=== PATIENT | male | born 1950 | race Caucasian/White ===

== ENCOUNTER 2017-01-05 11:08 | Inpatient (IN) ==
--- NOTE | 2017-01-04 15:24 | Discharge Summary ---
<Jeny Curiel E - Last Filed: 01/05/17 09:11> Date of Encounter: 01/05/17 - Discharge Diagnosis (1) Arthritis of left knee Priority: Primary Status: Acute (2) CAD (coronary artery disease) Priority: Secondary Status: Acute Qualifiers: Coronary Disease-Associated Artery/Lesion type: unspecified vessel or lesion type [place] vs. transplanted heart: unspecified whether [place] or transplanted heart Associated angina: angina presence unspecified Qualified Code(s): I25.10 - Atherosclerotic heart disease of [place] coronary artery without angina pectoris (3) Hypertension Priority: Secondary Status: Acute Qualifiers: Hypertension type: essential hypertension Qualified Code(s): I10 - Essential (primary) hypertension (4) HLD (hyperlipidemia) Priority: Secondary Status: Acute Qualifiers: Hyperlipidemia type: unspecified Qualified Code(s): E78.5 - Hyperlipidemia , unspecified (5) GERD (gastroesophageal reflux disease) Priority: Secondary Status: Acute Qualifiers: Esophagitis presence: esophagitis presence not specified Qualified Code(s) : K21.9 - Gastro-esophageal reflux disease without esophagitis (6) History of DVT (deep vein thrombosis) Priority: Secondary (Start Lovenox post-op and continue for 10 days for prophylaxis. Patient to resume Plavix following surgery.) Status: Acute - Discharge Medications Home Medications: Atenolol [Tenormin] 25 mg PO DAILY 05/20/16 [History] Atorvastatin [Lipitor] 40 mg PO HS 05/20/16 [History] Clopidogrel [Plavix] 75 mg PO DAILY 05/20/16 [History] Diclofenac Sodium [Voltaren] 1 appl TP QID 05/20/16 [History] Lisinopril [Zestril] 20 mg PO DAILY 05/20/16 [History] Montelukast [Singulair] 10 mg PO HS 05/20/16 [History] Ranitidine HCl [Zantac] 150 mg PO BID 05/20/16 [History] Enoxaparin [Lovenox] 30 mg SQ Q12HR #20 syr 01/04/17 [Rx] OxyCODONE Immed Rel [Roxicodone 5 MG] 5 - 10 mg PO Q6HR PRN #40 tablet 01/04/17 [Rx] Aspirin Enteric Coated [Aspirin EC] 325 mg PO BID #30 tablet. 01/05/17 [Rx] Aspirin [Lo-Dose Aspirin EC] 81 mg PO DAILY 01/05/17 [History] Allergies/Adverse Reactions: Allergies No Known Allergies Allergy (Verified 01/05/17 11:54) Primary care physician: Rudi Duffy MD - Patient Status Disposition: Home, Self-Care Condition: Good - Discharge Instructions Follow Up With: Rudi Duffy MD [Primary Care Provider] - - Hospital Course Hospital course: Mr. Cotto is a 66 year old male - Time Spent with Patient Total time spent providing and/or coordinating discharge services: <Sigifredo Monteiro - Last Filed: 01/08/17 06:44> Date of Encounter: 01/08/17 Time of Encounter: 06:43 - Discharge Diagnosis (1) Arthritis of left knee Priority: Primary Status: Acute (2) CAD (coronary artery disease) Priority: Secondary Status: Chronic Qualifiers: Coronary Disease-Associated Artery/Lesion type: unspecified vessel or lesion type [place] vs. transplanted heart: unspecified whether [place] or transplanted heart Associated angina: angina presence unspecified Qualified Code(s): I25.10 - Atherosclerotic heart disease of [place] coronary artery without angina pectoris (3) Hypertension Priority: Secondary Status: Chronic Qualifiers: Hypertension type: essential hypertension Qualified Code(s): I10 - Essential (primary) hypertension (4) HLD (hyperlipidemia) Priority: Secondary Status: Chronic Qualifiers: Hyperlipidemia type: unspecified Qualified Code(s): E78.5 - Hyperlipidemia , unspecified (5) GERD (gastroesophageal reflux disease) Priority: Secondary Status: Chronic Qualifiers: Esophagitis presence: esophagitis presence not specified Qualified Code(s) : K21.9 - Gastro-esophageal reflux disease without esophagitis (6) History of DVT (deep vein thrombosis) Priority: Secondary Status: Chronic Primary care physician: Rudi Duffy MD - Patient Status Functional capacity at discharge: uses cane/walker Overall status at discharge: patient is progressing back to baseline - Hospital Course Hospital course: Mr. Cotto is a 66 year old male The patient had an uneventful postoperative course. They received antibiotics and physical therapy and were discharged in stable condition. There will follow -up in the office in 2 weeks. Aspirin DVT prophylaxis - Time Spent with Patient Total time spent providing and/or coordinating discharge services:
[2017-01-05] MEDS ORDERED: CeFAZolin Pre 2,000 MG/100 ML 2,000 MG/100 ML BAG IVPB ONE (11:41)
[2017-01-05] MEDS ORDERED: Ringers Solution, Lactated 1,000 ML IVC SCH ×3 (11:45→16:12)
--- NOTE | 2017-01-05 11:46 | Anesthesia Evaluation PreOp ---
Date of Encounter: 01/05/17 Time of Encounter: 11:44 - Past History Planned Operation: Left Total Knee Arthroplasty Cardiac History: HTN, Hyperlipidemia, Cardiac Stent (stent x 1) Pulmonary History: Former smoker (quit 32 years ago, smoked for 12 years), Snore [employer] History: Denies Any Significant HX Other Medical History: GERD Anesthesia History: No Prior Anesthetic Complications, Past Anesthesia Alcohol Use: rarely Drug use: none Medications and Allergies Atenolol [Tenormin] 25 mg PO DAILY 05/20/16 [History] Atorvastatin [Lipitor] 40 mg PO HS 05/20/16 [History] Clopidogrel [Plavix] 75 mg PO DAILY 05/20/16 [History] Diclofenac Sodium [Voltaren] 1 appl TP QID 05/20/16 [History] Lisinopril [Zestril] 20 mg PO DAILY 05/20/16 [History] Montelukast [Singulair] 10 mg PO 05/20/16 [History] Ranitidine HCl [Zantac] 150 mg PO 05/20/16 [History] Enoxaparin [Lovenox] 30 mg SQ Q12HR #20 syr 01/04/17 [Rx] OxyCODONE Immed Rel [Roxicodone 5 MG] 5 - 10 mg PO Q6HR PRN #40 tablet 01/04/17 [Rx] Aspirin Enteric Coated [Aspirin EC] 325 mg PO BID #30 tablet. 01/05/17 [Rx] Aspirin [Lo-Dose Aspirin EC] 81 mg PO DAILY 01/05/17 [History] Allergies No Known Allergies Allergy (Verified 01/05/17 11:54) - Meds/Allergy Pre-op Review Medications Reviewed: Yes Allergies Reviewed: Yes Beta Blockers on Current Med List: Yes If Beta Blockers taken, Date/Time (Last Dose taken): 01/05/2017 at 1217 Anesthesia Results - Labs Laboratory Tests 12/22/16 12/22/16 12/22/16 13:34 13:34 13:34 WBC 7.0 Hgb 14.9 Hct 44.2 Plt Count 193 PT 11.5 INR 1.1 APTT 32.8 Sodium 141 Potassium 4.8 H BUN 20 Creatinine 0.98 - Imaging EKG: report reviewed (02/29/2016 SR, NSST abnormality) Anesthesia Exam O2 Sat Height 1.85 m Height 1.85 m Weight 89.811 kg Weight 89.811 kg O2 Sat by Pulse Oximetry 96 Vital Signs Temp Pulse Resp BP Pulse Ox 97.9 F 108 18 133/85 96 01/05/17 11:28 01/05/17 11:28 01/05/17 11:28 01/05/17 11:28 01/05/17 11:28 Height: 6'1'' Weight: 198 lbs NPO (# of Hours): 8 Pain Scale: 0 Pain Scale Used: Numeric (1 - 10) - HEENT Pupil (Motor): EOMI Mallampati: III Teeth: Normal Oral Opening: Greater than 3 - [employer] LOC: Oriented [employer] Motor: Normal RUE, Normal LUE, Normal RLE, Normal LLE, Normal Face [employer] Sensory: Normal: RUE, LUE, RLE, LLE, Face - Cardiac Rhythm: Regular Murmur: None - Pulmonary Breath Sounds: bilateral Clear Respiratory Effort: Symmetrical Anesthesia Assess/Plan ASA Score: 3 Modified [place] Scale for Level of Consciousness: Cooperative, oriented, and tranquil Anesthetic Plan: General, Regional Monitoring Plan: Standard Monitors Recovery Plan: PACU
--- NOTE | 2017-01-05 12:03 | History & Physical Report ---
Date of Encounter: 01/05/17 Time of Encounter: 12:02 24 Hour HP Update - Instructions Instructions: If the History and Physical is less than 30 days old and was completed prior to A.M. admission and or procedure and has NOT been updated on calendar day of procedure please complete this update prior to performing procedure. - Update Patient reports changes in Medical Condition: No Changes in examination, assessment, or condition: No Changes in Medication: No Preop tests/diagnostics Reviewed: Yes Surgery Remains Indicated: Yes Consent for Planned Operative Procedure(s) Verified: Yes - Pre-Operative Checklist Preoperative Checklist Indicated: No Prophylactic Antibiotic Ordered: Yes Is VTE Prophylaxis Indicated?: Yes
[2017-01-05] MEDS ORDERED: Dexamethasone 4 MG/ML VIAL ONE (12:37)
[2017-01-05] MEDS ORDERED: *HR* FentaNYL (PF) 100 MCG/2 ML VIAL ONE (12:37)
[2017-01-05] MEDS ORDERED: Lidocaine -MPF 2% 2 ML VIAL ONE (12:37)
[2017-01-05] MEDS ORDERED: Ondansetron 4 MG/2 ML VIAL ONE (12:37)
[2017-01-05] MEDS ORDERED: *HR* Midazolam HCl 2 MG/2 ML VIAL ONE (12:38)
[2017-01-05] MEDS ORDERED: *HR* Propofol 200 MG/20 ML VIAL IVP ONE (12:38)
[2017-01-05] MEDS ORDERED: ROPIVACAINE HCL/PF 0.5% 30 ML VIAL ONE (12:56)
[2017-01-05] MEDS ORDERED: Tetracaine/PF 20 MG/2 ML AMPUL ONE (13:25)
[2017-01-05] MEDS ORDERED: Ketorolac 30 MG/ML VIAL ONE (14:32)
[2017-01-05] MEDS ORDERED: Ondansetron 4 MG/2 ML VIAL IVP ONE (14:50)
[2017-01-05] MEDS ORDERED: *HR* Labetalol 100 MG/20 ML MDV IVP PRN (14:50)
[2017-01-05] MEDS ORDERED: Dexamethasone 4 MG/ML VIAL IVP ONE (14:50)
[2017-01-05] MEDS ORDERED: *HR* HYDROmorphone 2 MG/ML SYRINGE ONE (14:55)
--- NOTE | 2017-01-05 14:58 | Orthopedic Operative Note ---
Date of procedure: 01/05/17 Pre-op diagnosis: Left knee arthritis Post-op diagnosis: same Procedure: Procedure: Left Total knee replacement Estimated blood loss: 200 cc Hardware: Arthrex Femur: 7 Tibia: 7 PS insert: 8 Patella: 40 Exam Under anesthesia: Varus alignment loss. Full extension 5 degrees Procedural Notes: Grade 3 arthritic changes patellofemoral joint grade 4 changes medial compartment. Operative procedure: The patient was brought to the operating room and placed on the operating room table. After general anesthesia was administered the operative knee was examined. Findings were noted in the exam under anesthesia. The operative extremity was prepped and draped in sterile surgical fashion. The patient received IV antibiotics prior to skin incision. A standard midline incision was made centered over the patella. The incision was made through the skin and subcutaneous tissue. A medial parapatellar tendon approach was performed. Care was taken to preserve tissue along the medial aspect of the patella. And to protect the patella tendon. The deep MCL was released off the medial tibia. The infra patella fat pad was excised. Knee was brought into flexion. Patient noted that grade 3 arthritic changes patellofemoral joint grade 4 changes medial compartment. The entry hole was made for the intramedullary femoral guide. The guide was seated in 6 degrees of valgus. Anterior cut was made followed by the distal cut. The ACL the PCL the medial and the lateral menisci were excised. The tibia was subluxed forward. The entry hole was made for the intramedullary tibial guide. Guide was seated to resect 2 mm off the more abnormal side. The knee was brought into flexion the distal femur was sized a 7. The femoral guide was seated, the anterior cut was made followed by the posterior condylar cut, followed by the chamfer cuts. The finishing guide was seated the box cut was made and the lug holes were drilled. The tibia was sized 7, the tibial tray was seated and prepared with the large drill followed by the fin cutter. Trial reduction revealed full extension no varus valgus instability with the appropriate 8 PS Dedra. The patella was everted and cut was made at the level of the insertion of the quadriceps and patella tendon. The patella was sized 40 the guide was seated and the lug holes are drilled. Trial reduction revealed excellent patella tracking. All trial components were removed all bony surfaces were irrigated. The tibia was cemented first followed by the femur. The 8 PS Dedra was seated and secured patient had full extension and full flexion and no varus valgus instability. The patella was cemented and held in place with the patellar holding clamp. After the cement had hardened, the knee sat for 2 minutes with a Betadine saline solution. The knee was then irrigated out with 2 L of pulse irrigation. The extensor mechanism was closed with #2 FiberWire suture and #2 PDS suture. The subcutaneous tissue was then irrigated and closed deep with #1 PDS suture superficially with 0 PDS suture and skin was closed with skin theron. The patient was then placed in a sterile dressing and a postoperative brace extubated and transferred to recovery room in stable condition. Anesthesia: HANANE Surgeon: Sigifredo Monteiro Clinical Psychologist: Jeny Curiel Condition: stable Disposition: PACU
[2017-01-05] MEDS: *HR* HYDROmorphone (PF) 1 MG/ML SYRINGE IVP PRN ×4 (15:25→20:27)
[2017-01-05] MEDS ORDERED: *HR* HYDROmorphone (PF) 1 MG/ML SYRINGE ONE (15:26)
--- NOTE | 2017-01-05 16:05 | Anesthesia Evaluation Post Op ---
Date of Encounter: 01/05/17 Time of Encounter: 16:04 - Vital Signs Vital Signs: Vital Signs/O2 Sat/Glucose, Most Recent Temp Pulse Resp BP Pulse Ox 97.4 F L 74 16 138/80 99 01/05/17 15:51 01/05/17 15:51 01/05/17 15:51 01/05/17 15:51 01/05/17 15:51 - Lungs Lungs: Clear Ascult./Percussion - Airway Airway: Non-obstructed - Cardiovascular Regular Rate - Mental Status Mental Status: Alert & Oriented, Answers Appropriately - Pain Pain Scale: 1 Pain Scale used: Numeric (1 - 10) - Nausea Vomiting Nausea Vomiting: Not Present - Hydration Hydration: NPO - Discharge PostOp Status: Transfer Patient to floor
[2017-01-05 16:07] LABS: Hematocrit 43.9 % (37.5-50.1); Hemoglobin 14.5 g/dL (12.9-16.9)
[2017-01-05] MEDS ORDERED: Ondansetron 4 MG/2 ML VIAL IVP PRN (16:12)
[2017-01-05] MEDS ORDERED: *HR* OxyCODONE Immed Rel 5 MG TABLET PO PRN (16:12)
[2017-01-05] MEDS ORDERED: MOM Conc 10 ML UD.LIQ PO PRN (16:12)
[2017-01-05] MEDS ORDERED: Naloxone 0.4 MG/ML INJ IVP PRN (16:12)
[2017-01-05] MEDS ORDERED: Sennosides 8.6 MG TABLET PO PRN (16:12)
[2017-01-05] MEDS ORDERED: Temazepam 15 MG CAPSULE PO PRN (16:12)
--- NOTE | 2017-01-05 16:28 | Anesthesia Procedures ---
Date of Encounter: 01/05/17 Time of Encounter: 14:00 Procedures: Anesthesia - Nerve Block Procedure Date: 01/05/17 Time: 14:00 Allergies/Adv Reactions: NKA Pre-op Diagnosis: Left knee OA Surgical Procedure: Left TKA Checklist: Correct Patient Identifier, Correct procedure, History checked Correct side: Left Blood Thinner: No Monitor Applied: EKG, BP, Pulse Oximetry Supplemental Oxygen via Nasal Cannula (L/min): 2 Sedation: Versed (mg): 2 Sedation: Fentanyl (mcg): 100 Indication: Post Op Analgesia Pre-op Neuro Deficits: No Block Type: Femoral, Other (IPAc) Catheter placed: No Sterile Technique: Yes Ultrasound used: Yes Anatomy identified: Yes Visual spread of Local: Yes Neuro Stimulation: Yes Nerve Stimulator Range: 0.2 - 0.4 mA Blood on Needle Aspiration: No Smooth Injection of Local: Yes Pain with Injection of Local: No Prep: Chlorhexadine Needle: 22 x 50 mm Stimuplex, 21 x 100 mm Stimuplex Local: 0.25% Bupivicaine w/Clonidine 20 mcg/cc (20ML IPAC), Ropivacaine (30ml 0.5% for femoral) Volume (cc): 50 TOTAL Number of Attempts: 1 Complications: None/effective block Vitals: Vital Signs Temperature 97.9 F 01/05/17 11:28 Pulse Rate 108 01/05/17 11:28 Respiratory Rate 18 01/05/17 11:28 Blood Pressure 133/85 01/05/17 11:28 O2 Sat by Pulse Oximetry 96 01/05/17 11:28 Temperature 97.4 F L 01/05/17 16:21 Pulse Rate 70 01/05/17 16:21 Respiratory Rate 15 01/05/17 16:21 Blood Pressure 150/82 01/05/17 16:21 O2 Sat by Pulse Oximetry 98 01/05/17 16:21
[2017-01-05] MEDS: Ringers Solution, Lactated 1,000 ML IVC SCH (16:32)
[2017-01-05] MEDS: *HR* Enoxaparin 30 MG/0.3 ML SYRINGE SQ SCH (17:35)
[2017-01-05] MEDS: ceFAZolin 2,000 MG in D5% in Water 100 ML IVPB SCH (20:21)
[2017-01-05] MEDS: Famotidine 20 MG TABLET PO SCH (20:21)
[2017-01-06] MEDS: *HR* HYDROmorphone (PF) 1 MG/ML SYRINGE IVP PRN ×2 (01:24→05:36)
[2017-01-06] MEDS: ceFAZolin 2,000 MG in D5% in Water 100 ML IVPB SCH (05:36)
[2017-01-06] MEDS: *HR* Enoxaparin 30 MG/0.3 ML SYRINGE SQ SCH ×2 (05:37→17:11)
[2017-01-06 06:59] LABS: BUN/Creatinine Ratio 21 (6-26); Blood Urea Nitrogen 19 mg/dL (8-26); Calcium 8.6 mg/dL (8.6-10.8); Carbon Dioxide 25 mEq/L (19-29); Chloride 104 mEq/L (98-109); Glucose 196 mg/dL (70-99); Osmolality,Calculated 294 (280-300); Potassium 4.8 mEq/L (3.5-4.5); Sodium 138 mEq/L (136-145); eGFR For African Americans > 60 (> 60); eGFR For Non-African Americans > 60 (> 60)
[2017-01-06 07:11] LABS: Hematocrit 38.1 % (37.5-50.1)
[2017-01-06 07:14] LABS: Hemoglobin 12.8 g/dL (12.9-16.9)
--- NOTE | 2017-01-06 08:05 | Orthopedics Progress Note ---
Date of Encounter: 01/06/17 Time of Encounter: 08:05 - Assessment and Plan (1) Arthritis of left knee Current Visit: Yes Status: Acute (2) CAD (coronary artery disease) Current Visit: Yes Status: Chronic Qualifiers: Coronary Disease-Associated Artery/Lesion type: unspecified vessel or lesion type [place] vs. transplanted heart: unspecified whether [place] or transplanted heart Associated angina: angina presence unspecified Qualified Code(s): I25.10 - Atherosclerotic heart disease of [place] coronary artery without angina pectoris (3) Hypertension Current Visit: Yes Status: Chronic Qualifiers: Hypertension type: essential hypertension Qualified Code(s): I10 - Essential (primary) hypertension (4) HLD (hyperlipidemia) Current Visit: Yes Status: Chronic Qualifiers: Hyperlipidemia type: unspecified Qualified Code(s): E78.5 - Hyperlipidemia , unspecified (5) GERD (gastroesophageal reflux disease) Current Visit: Yes Status: Chronic Qualifiers: Esophagitis presence: esophagitis presence not specified Qualified Code(s) : K21.9 - Gastro-esophageal reflux disease without esophagitis (6) History of DVT (deep vein thrombosis) Current Visit: Yes Status: Chronic Subjective Interval history: Patient was seen this morning doing well without complaints. Afebrile vital signs stable. Operative extremity: Neurovascularly intact Dressing clean dry and intact Calves nontender Assessment and plan: Continue with postoperative care Hematocrit 38 Objective Vital signs: Vital Signs Temp Pulse Resp BP Pulse Ox 01/06/17 06:48 97.8 F 76 16 125/72 97 01/06/17 04:18 97.5 F L 81 16 124/71 98 01/06/17 01:00 97.7 F 79 16 123/76 98 01/05/17 17:32 98.3 F 70 16 96 01/05/17 16:45 98.2 F 70 16 142/89 96 01/05/17 16:42 96 01/05/17 16:21 97.4 F L 70 15 150/82 98 01/05/17 16:11 97.1 F L 69 16 126/70 98 01/05/17 16:01 69 16 139/78 97 01/05/17 15:51 97.4 F L 74 16 138/80 99 01/05/17 15:41 72 16 144/76 98 01/05/17 15:31 80 16 122/108 98 01/05/17 15:21 97.6 F 82 16 166/86 98 01/05/17 13:42 77 18 166/90 97 01/05/17 11:28 97.9 F 108 18 133/85 96 Intake and Output 01/05/17 01/06/17 01/06/17 23:59 07:59 15:59 Intake Total 100 / 100 50 / 50 Balance 100 / 100 50 / 50 Intake: IV Fluids 100 / 100 Ancef 2,000 MG In 100 / 100 Dextrose 5% 100 ML @ 200 mls/hr IVPB Q8H [facility] Rx#: [id number] Oral 50 / 50 - Labs CBC & BMP: 01/06/17 06:32 01/06/17 06:32 Labs: Abnormal lab results Hgb 12.8 g/dL (12.9-16.9) L D 01/06/17 06:32 Potassium 4.8 mEq/L (3.5-4.5) H 01/06/17 06:32 Glucose 196 mg/dL (70-99) H 01/06/17 06:32 - VTE Documentation of Mechanical Device: Venous foot pump, device Consult Discharge Plan - Plan Referrals: Rudi Duffy MD [Primary Care Provider] -
[2017-01-06] MEDS: *HR* OxyCODONE Immed Rel 5 MG TABLET PO PRN ×3 (08:36→22:20)
[2017-01-06] MEDS: Aspirin Enteric Coated 81 MG Tablet PO SCH (08:36)
[2017-01-06] MEDS: Lisinopril 20 MG TABLET PO SCH (08:36)
[2017-01-06] MEDS: Famotidine 20 MG TABLET PO SCH ×2 (08:36→19:28)
[2017-01-06] MEDS: Ringers Solution, Lactated 1,000 ML IVC SCH (17:09)
[2017-01-07] MEDS: *HR* OxyCODONE Immed Rel 5 MG TABLET PO PRN ×5 (02:48→21:35)
[2017-01-07 06:05] LABS: Hematocrit 35.7 % (37.5-50.1)
[2017-01-07] MEDS: *HR* HYDROmorphone (PF) 1 MG/ML SYRINGE IVP PRN (06:25)
[2017-01-07] MEDS: *HR* Enoxaparin 30 MG/0.3 ML SYRINGE SQ SCH ×2 (06:25→17:40)
[2017-01-07 06:43] LABS: BUN/Creatinine Ratio 21 (6-26); Blood Urea Nitrogen 17 mg/dL (8-26); Calcium 8.8 mg/dL (8.6-10.8); Carbon Dioxide 27 mEq/L (19-29); Chloride 103 mEq/L (98-109); Glucose 111 mg/dL (70-99); Osmolality,Calculated 290 (280-300); Potassium 4.1 mEq/L (3.5-4.5); Sodium 139 mEq/L (136-145); eGFR For African Americans > 60 (> 60); eGFR For Non-African Americans > 60 (> 60)
--- NOTE | 2017-01-07 08:34 | Orthopedics Progress Note ---
Date of Encounter: 01/07/17 Time of Encounter: 08:33 - Assessment and Plan (1) Arthritis of left knee Current Visit: Yes Status: Acute (2) CAD (coronary artery disease) Current Visit: Yes Status: Chronic Qualifiers: Coronary Disease-Associated Artery/Lesion type: unspecified vessel or lesion type [place] vs. transplanted heart: unspecified whether [place] or transplanted heart Associated angina: angina presence unspecified Qualified Code(s): I25.10 - Atherosclerotic heart disease of [place] coronary artery without angina pectoris (3) Hypertension Current Visit: Yes Status: Chronic Qualifiers: Hypertension type: essential hypertension Qualified Code(s): I10 - Essential (primary) hypertension (4) HLD (hyperlipidemia) Current Visit: Yes Status: Chronic Qualifiers: Hyperlipidemia type: unspecified Qualified Code(s): E78.5 - Hyperlipidemia , unspecified (5) GERD (gastroesophageal reflux disease) Current Visit: Yes Status: Chronic Qualifiers: Esophagitis presence: esophagitis presence not specified Qualified Code(s) : K21.9 - Gastro-esophageal reflux disease without esophagitis (6) History of DVT (deep vein thrombosis) Current Visit: Yes Status: Chronic Subjective Interval history: Patient was seen this morning doing well without complaints. Afebrile vital signs stable. Operative extremity: Neurovascularly intact Dressing clean dry and intact Calves nontender Assessment and plan: Continue with postoperative care Hematocrit 35 Objective Vital signs: Vital Signs Temp Pulse Resp BP Pulse Ox 01/07/17 08:00 98.5 F 84 16 143/78 95 01/07/17 00:00 98.3 F 95 18 154/73 97 01/06/17 20:00 99.4 F 93 17 143/75 99 01/06/17 16:14 98.2 F 76 16 135/70 99 01/06/17 11:10 74 16 106/60 95 01/06/17 11:06 98.4 F 74 16 106/60 95 Intake and Output 01/06/17 01/07/17 01/07/17 23:59 07:59 15:59 Intake Total 240 / 240 400 / 400 Balance 240 / 240 400 / 400 Intake: Oral 240 / 240 400 / 400 Other: Percent of Meal Consumed 100% # Voids 1 1 - Labs CBC & BMP: 01/07/17 05:38 01/07/17 05:38 Labs: Abnormal lab results Hgb 12.0 g/dL (12.9-16.9) L 01/07/17 05:38 Hct 35.7 % (37.5-50.1) L 01/07/17 05:38 Glucose 111 mg/dL (70-99) H 01/07/17 05:38 - VTE Documentation of Mechanical Device: Venous foot pump, device Consult Discharge Plan - Plan Referrals: Rudi Duffy MD [Primary Care Provider] -
[2017-01-07] MEDS: Aspirin Enteric Coated 81 MG Tablet PO SCH (09:19)
[2017-01-07] MEDS: Famotidine 20 MG TABLET PO SCH ×2 (09:19→21:35)
[2017-01-07] MEDS: Lisinopril 20 MG TABLET PO SCH (09:19)
[2017-01-07] MEDS: Ringers Solution, Lactated 1,000 ML IVC SCH (17:25)
[2017-01-08] MEDS: *HR* OxyCODONE Immed Rel 5 MG TABLET PO PRN ×2 (01:36→05:38)
[2017-01-08] MEDS: *HR* Enoxaparin 30 MG/0.3 ML SYRINGE SQ SCH (05:39)
--- NOTE | 2017-01-08 06:44 | Orthopedics Progress Note ---
Date of Encounter: 01/08/17 Time of Encounter: 06:44 - Assessment and Plan (1) Arthritis of left knee Current Visit: Yes Status: Acute (2) CAD (coronary artery disease) Current Visit: Yes Status: Chronic Qualifiers: Coronary Disease-Associated Artery/Lesion type: unspecified vessel or lesion type [place] vs. transplanted heart: unspecified whether [place] or transplanted heart Associated angina: angina presence unspecified Qualified Code(s): I25.10 - Atherosclerotic heart disease of [place] coronary artery without angina pectoris (3) Hypertension Current Visit: Yes Status: Chronic Qualifiers: Hypertension type: essential hypertension Qualified Code(s): I10 - Essential (primary) hypertension (4) HLD (hyperlipidemia) Current Visit: Yes Status: Chronic Qualifiers: Hyperlipidemia type: unspecified Qualified Code(s): E78.5 - Hyperlipidemia , unspecified (5) GERD (gastroesophageal reflux disease) Current Visit: Yes Status: Chronic Qualifiers: Esophagitis presence: esophagitis presence not specified Qualified Code(s) : K21.9 - Gastro-esophageal reflux disease without esophagitis (6) History of DVT (deep vein thrombosis) Current Visit: Yes Status: Chronic Subjective Interval history: Patient was seen this morning doing well without complaints. Afebrile vital signs stable. Operative extremity: Neurovascularly intact Dressing clean dry and intact Calves nontender Assessment and plan: Continue with postoperative care Discharge today Objective Vital signs: Vital Signs Temp Pulse Resp BP Pulse Ox 01/07/17 23:41 99.4 F 97 17 159/79 96 01/07/17 19:34 100.0 F H 89 18 157/80 98 01/07/17 14:28 98.2 F 76 16 138/79 97 01/07/17 11:23 97.9 F 80 18 150/76 96 01/07/17 08:00 98.5 F 84 16 143/78 95 Intake and Output 01/07/17 01/07/17 01/08/17 15:59 23:59 07:59 Output Total 200 / 200 Balance -200 / -200 Output: Urine 200 / 200 Other: # Voids 1 2 1 - Labs CBC & BMP: 01/07/17 05:38 01/07/17 05:38 Labs: Abnormal lab results Hgb 12.0 g/dL (12.9-16.9) L 01/07/17 05:38 Hct 35.7 % (37.5-50.1) L 01/07/17 05:38 Glucose 111 mg/dL (70-99) H 01/07/17 05:38 - VTE Documentation of Mechanical Device: Venous foot pump, device Consult Discharge Plan - Plan Referrals: Rudi Duffy MD [Primary Care Provider] -
[2017-01-08 07:57] VITALS: BP 161/83
== END 2017-01-08 09:35 | disposition home or self-care (01) | DRG 470 ==
LOC: SAMDAY 11:08 → 3NENU 16:09
PROVIDERS: ADMIT Orthopaedic Surgery; ATTEND Orthopaedic Surgery